=== PATIENT | female | born 1975 | race Caucasian/White ===

== ENCOUNTER 2022-01-06 02:37 | Emergency (ER) | payer OTHER ==
[~2022-01-06] VITALS: Ht 165.1 cm; Wt 93.0 kg
[2022-01-06] MEDS ORDERED: GABA100 PO (03:11)
[2022-01-06] MEDS ORDERED: ABILIFY MYCITE5 M2 PO (03:11)
[2022-01-06] MEDS ORDERED: IBUP800 PO (03:11)
[2022-01-06] MEDS ORDERED: DULO60 PO (03:12)
[2022-01-06] MEDS ORDERED: BACLOFEN5 M1 PO (03:12)
[2022-01-06 03:35] LABS: Source, Urine Clean Catch
[2022-01-06 03:38] LABS: Bilirubin, Urine Neg (Neg); Blood, Urine Neg (Neg); Glucose Qualitative, Urine Neg (Neg); Ketones, Urine Neg (Neg); Leukocyte Esterase, Urine Neg (Neg); Nitrite, Urine Neg (Neg); Protein, Urine Neg (Neg); Specific Gravity, Urine 1.015 (1.003-1.022); Urobilinogen, Urine NORM (Normal)
[2022-01-06 05:04] LABS: Appearance, Urine Clear (Clear); Color, Urine Yellow (P-Yellow)
[2022-01-10] MEDS ORDERED: CYCL10 PO (06:17)
== END 2022-01-06 04:31 | disposition left against medical advice (07) ==
LOC: ER 02:37
PROVIDERS: Emergency Medicine
DX: R10.9 Unspecified abdominal pain (principal); Z53.21 Procedure and treatment not carried out due to patient leaving prior to being seen by health care provider
CPT/HCPCS: 81003; 81025